=== PATIENT | female | born 1935 | race Caucasian/White ===

== ENCOUNTER 2019-03-02 18:19 | Inpatient (IN) | payer OTHER ==
[~2019-03-02] VITALS: Ht 170.2 cm; Wt 70.5 kg
[~2019-03-02 18:19] MED LIST: LANS30EC; LEVSOD25
[2019-03-02 18:48] LABS: BASOPHILS ABSOLUTE AUTO 0.07 K/mm3 (0.00-0.23); BASOPHILS PERCENT AUTO 1 % (0-2); EOSINOPHILS ABSOLUTE AUTO 0.14 K/mm3 (0.00-0.68); EOSINOPHILS PERCENT AUTO 1 % (0-6); Hematocrit 47.7 % (33.0-51.0); Hemoglobin 16.2 g/dL (11.5-16.0); IMMATURE GRAN ABSOLUTE AUTO 0.02 K/mm3 (0.00-0.10); IMMATURE GRAN PERCENT AUTO 0 % (0-1); LYMPHOCYTES ABSOLUTE AUTO 3.97 K/mm3 (0.84-5.20); LYMPHOCYTES PERCENT AUTO 38 % (21-46); MONOCYTES ABSOLUTE AUTO 0.63 K/mm3 (0.16-1.47); MONOCYTES PERCENT AUTO 6 % (4-13); Mean Corpuscular HGB 30.7 pg (26.0-34.0); Mean Corpuscular Volume 90 fL (80-100); NEUTROPHILS ABSOLUTE AUTO 5.69 K/mm3 (1.96-9.15); NEUTROPHILS PERCENT AUTO 54 % (41-73); Platelet Count 249 K/mm3 (150-400); RDW Coefficient Variation 13.9 % (11.7-14.2); RDW Standard Deviation 46.2 fL (35.1-46.3); Red Blood Cell Count 5.28 M/mm3 (3.80-5.20); White Blood Cell Count 10.52 K/mm3 (4.00-11.30)
[2019-03-02] MEDS ORDERED: OMEPRAZOLE20 MG PO (18:51)
[2019-03-02] MEDS ORDERED: FISH OIL 1,0001 EAC1 PO (18:52)
[2019-03-02] MEDS ORDERED: CHOL10002 (18:52)
[2019-03-02] MEDS ORDERED: LOSA50 PO (18:52)
[2019-03-02] MEDS ORDERED: Aspirin EC81 MG PO (18:53)
[2019-03-02] MEDS ORDERED: VIT1CAPS12 (18:53)
[2019-03-02 19:11] LABS: Alanine Aminotransfer (ALT/SGP 64 U/L (12-78); Albumin/Globulin Ratio 1.1 (0.8-1.8); Alk Phos 131 U/L (50-136); Anion Gap 9 mmol/L (6-16); Aspartate Aminotrans (AST/SGOT 52 U/L (12-37); Bilirubin, Total 0.7 mg/dL (0.1-1.0); Blood Urea Nitrogen 20 mg/dL (8-24); Bun/Creatinine Ratio 26.4 (12.0-20.0); CO2, Blood 24 mmol/L (21-32); Calcium, Blood 9.5 mg/dL (8.5-10.1); Chloride, Blood 103 mmol/L (98-108); Creatinine, Blood 0.76 mg/dL (0.40-1.00); Globulin, Blood 3.6 g/dL (2.2-4.0); Glomerular Filtration Rate >60 (60-); Glucose, Blood 125 mg/dL (70-99); Potassium, Blood 4.3 mmol/L (3.5-5.5); Sodium, Blood 136 mmol/L (136-145); Total Protein, Blood 7.6 g/dL (6.4-8.2)
[2019-03-02] MEDS ORDERED: TYLENOL PM PO (23:42)
--- NOTE | 2019-03-03 00:07 | NUR ---
DNR STATUS: DURING ADMIT ASSESSMENT, PT CLEARLY VERBALIZED THAT SHE DOES HAVE AN ADVANCE DIRECTIVE COPY AT HOME, WITH HER SON, AND HER DAUGHTER WELL. DR. CODY NOTIFIED. NEW ORDER FOR DNR STATUS.
--- NOTE | 2019-03-03 01:36 | NUR ---
PT CONTINUES TO DENY PAIN OR SOB. PT STATED TAKES TYLENOL PM AT NIGHT TO SLEEP AND IS REQUESTING SOMETHING. DR. CODY NOTIFIED. NEW ORDER FOR MELATONIN 6mg AT BEDTIME.
[2019-03-03 04:11] LABS: International Normalized Ratio 1.03; Prothrombin Time Results 10.9 Sec (9.7-11.5)
--- NOTE | 2019-03-03 09:10 | NUR ---
0830: ASSESSMENT COMPLETED, PT A&OX4. DR. GARCIA AT BEDSIDE TO DISCUSS PLAN OF CARE WITH PT AND DAUGHTER, PROCEDURE CONSENT SIGNED, HEPARIN OFF PER DR. HUTSON, PT DENIES CHEST PAIN/PRESSURE, SOB, OR NAUSEA AT THIS TIME, REPORTS RIGHT SHOULDER PAIN SECONDARY TO FALL AT HOME, KPAD APPLIED, PT REFUSES PAIN MED. 0910: ECHO COMPLETED. PT RESTING IN BED WITH NO C/O.
--- NOTE | 2019-03-03 10:47 | NUR ---
PT TO SHEET TAKER AT THIS TIME, ELODIA HUTSON CP/JASON AND SOB, SON TO ACCOMPANY PT. AM MEDS HELD UNTIL AFTER PROCEDURE, WILL ADMINISTER UPON RETURN TO UNIT.
[2019-03-03] MEDS ORDERED: Durezol5 ML RIGHTEYE (10:51)
[2019-03-03] MEDS ORDERED: TIMO.5OPSO RIGHTEYE (10:52)
--- NOTE | 2019-03-03 12:09 | NUR ---
PT RETURNED FROM [facility], DENIES CHEST PAIN/PRESSURE AT THIS TIME, VSS. PT DROWSY BUT ORIENTED X4, ROUSES EASILY TO VOICE. SON AT BEDSIDE. REPORT RECEIVED FROM [facility] STAFF, TR BAND PRESENT TO RIGHT RADIAL ARTERY ACCESS POINT, NO BLEEDING OR BRUISING NOTED, SITE WNL.
--- NOTE | 2019-03-03 13:39 | NUR ---
PHARMACY AWARE OF PTT RESULT, DOSING CLARIFIED. HEPARIN GTT RESUMED AT 12U/KG/HR PER PHARMACY ORDERS. RIGHT RADIAL ACCESS SITE WNL, NO OOZIG NOTED SINCE RETURN FROM PRACTICING MD ANESTHESIOLOGIST. 3ML AIR REMOVED FROM TR BAND AT THIS TIME. PT DENIES CP/PRESSURE OR SOB, IS RESTING WITH EYES CLOSED, DAUGHTER AT BEDSIDE. VSS.
--- NOTE | 2019-03-03 14:18 | NUR ---
1400: ROOM ASSIGNMENT RECEIVED, REPORT CALLED TO FABIANA ASTUDILLO AT [place]. 1415: REMAINING 2ML AIR REMOVED FROM TR BAND, WILL CONTINUE TO MONITOR.
--- NOTE | 2019-03-03 14:44 | NUR ---
NO CHANGES TO RADIAL SITE NOTED 30MIN AFTER COMPLETE DEFLATION, RADIAL PULSE 2+, NO OOZING OR BLEEDING NOTED FROM SITE, SITE WNL. PT DENIES CHEST PAIN/PRESSURE/SOB, VSS. [place] [facility] [place] [facility] HEPARIN CONTINUES TO INFUSE AT 12U/KG/HR, TR BAND SYRINGE SENT WITH EMS CREW. FAM[place] A[place] [facility] [place]
== END 2019-03-03 12:45 | disposition short-term general hospital (02) | DRG 282 ==
LOC: ER 18:19 → ICUE 20:30 → ERHOLD 20:30 → ICUE 22:53
PROVIDERS: Emergency Medicine; Physician Assistant; ADMIT Hospitalist
PROC: 4A023N7 Measurement of Cardiac Sampling and Pressure, Left Heart, Percutaneous Approach (ICD-10-PCS; principal; 2019-03-03)
PROC: B211YZZ Fluoroscopy of Multiple Coronary Arteries using Other Contrast (ICD-10-PCS; 2019-03-03)
DX: I21.4 Non-ST elevation (NSTEMI) myocardial infarction (principal); I10 Essential (primary) hypertension; E03.9 Hypothyroidism, unspecified; E78.5 Hyperlipidemia, unspecified; K21.9 Gastro-esophageal reflux disease without esophagitis
CPT/HCPCS: 36415; 71046; 80053; 83690; 84484; 85025; 85610; 85730; 86850; 86900; 86901; 93005; 93010; 93306; 93458; 96374; 99152; 99153; 99285-25; A9270; C1769; C1894; J1644; J2250; J3010; J7030; Q9967

== ENCOUNTER 2019-10-15 08:50 | Day surgery (SDC) | payer OTHER ==
[~2019-10-15] VITALS: Ht 170.2 cm; Wt 71.1 kg
[~2019-10-15 08:50] MED LIST changes: +Aspirin EC81 MG PO; +CHOL10002; +Durezol5 ML RIGHTEYE; +FISH OIL 1,0001 EAC1 PO; +LOSA50 PO; +OMEPRAZOLE20 MG PO; +TIMO.5OPSO RIGHTEYE; +TYLENOL PM PO; +VIT1CAPS12
--- NOTE | 2019-10-15 10:23 | NUR ---
Patient up to Ambulate independently. Gait steady. History, Chart, Medications and Allergies reviewed before start of procedure.Pre-Op teaching done. Pt verbalizes understanding.
--- NOTE | 2019-10-15 12:55 | NUR ---
PT ALERT AND ORIENTED. VSS. PT DENIES PAIN/NAUSEA. DC INSTRUCTIONS REVIEWED. PT UP AND DRESSED INDEPENDENTLY. PT ESCORTED OUT WITH STAFF VIA WC.
--- NOTE | 2019-10-15 13:18 | NUR ---
10/15/19 1317 ALEX PABON History, Chart, Medications and Allergies reviewed before start of procedure. O2 VIA N/C INTACT THROUGHOUT SEDATION/PROCEDURE. MONITOR INTACT WITH CONTINUOUS PULSE OXIMETRY AND INTERMITTENT BP.
== END 2019-10-15 12:55 | disposition home or self-care (01) ==
LOC: ORSCMMR 08:50 → ORD 10:30 → ORSCMMR 10:30
PROVIDERS: Orthopaedic Surgery
PROC: 3E0R33Z Introduction of Anti-inflammatory into Spinal Canal, Percutaneous Approach (ICD-10-PCS; principal; 2019-10-15 10:30)
DX: M54.16 Radiculopathy, lumbar region (principal); M48.061 Spinal stenosis, lumbar region without neurogenic claudication; I10 Essential (primary) hypertension; E03.9 Hypothyroidism, unspecified; R73.03 Prediabetes; K21.9 Gastro-esophageal reflux disease without esophagitis; E78.5 Hyperlipidemia, unspecified; Z79.82 Long term (current) use of aspirin; Z79.899 Other long term (current) drug therapy
CPT/HCPCS: J1040

== ENCOUNTER 2020-04-07 10:51 | Day surgery (SDC) | payer OTHER ==
[~2020-04-07] VITALS: Ht 170.2 cm; Wt 70.4 kg
[~2020-04-07 10:51] MED LIST changes: +ANASTROZOLE PO; +ARTIFICIAL TEAR15 M2; +ASPIR 8181 MG PO; +ATOR20 PO; +CLOP75 PO; +FISH OIL 1,2001 EAC1 PO; +GABA300 PO; +LEVO-T175 MCG PO; +METO25 PO; +PANT40 PO; +PREG50 PO; +Preservision A1 EACH PO; +TIMOPTIC 0.5% RIGHTEYE; +VITAMIN D325 MC3 PO
== END 2020-04-07 13:10 | disposition home or self-care (01) ==
LOC: ORSCSDS 10:51
PROVIDERS: Orthopaedic Surgery
PROC: 01N50ZZ Release Median Nerve, Open Approach (ICD-10-PCS; principal; 2020-04-07 12:15)
DX: G56.02 Carpal tunnel syndrome, left upper limb (principal); I10 Essential (primary) hypertension; I25.10 Atherosclerotic heart disease of native coronary artery without angina pectoris; E03.9 Hypothyroidism, unspecified; Z79.899 Other long term (current) drug therapy; Z79.01 Long term (current) use of anticoagulants
CPT/HCPCS: J0690; J3010; J7120

== ENCOUNTER → 2020-10-21 | Outpatient (CLI) | payer OTHER | END | disposition home or self-care (01) | LOC: LAB SHORT 11:11 → LAB 11:11 | DX: C44.311 Basal cell carcinoma of skin of nose (principal); L90.5 Scar conditions and fibrosis of skin; I88.9 Nonspecific lymphadenitis, unspecified | CPT/HCPCS: 88305 ==

== ENCOUNTER → 2021-02-26 | Outpatient (CLI) | payer OTHER ==
[2021-02-27 13:55] LABS: Stool Occult Bld Immuno 1 Negative (NEGATIVE)
== END | disposition home or self-care (01) ==
LOC: LAB SHORT 11:00
PROVIDERS: Family Medicine
DX: Z12.11 Encounter for screening for malignant neoplasm of colon (principal)
CPT/HCPCS: 82274

== ENCOUNTER 2021-08-25 11:33 | Day surgery (SDC) | payer OTHER ==
[~2021-08-25] VITALS: Ht 170.2 cm; Wt 65.6 kg
--- NOTE | 2021-08-25 13:01 | NUR ---
08/25/21 1301 Kimberly Crockett GROUNDING PAD PLACED ON LEFT CALF
--- NOTE | 2021-08-25 13:36 | NUR ---
08/25/21 1336 Kimberly Crockett HEARING AIDS BILAT IN PT. EARS AT DISCHARGE. PT. WITH GLASSES ON AT DISCHARGE.
== END 2021-08-25 13:38 | disposition home or self-care (01) ==
LOC: ORSCSDS 11:33
PROVIDERS: Student in an Organized Health Care Education/Training Program
PROC: 0DB78ZX Excision of Stomach, Pylorus, Via Natural or Artificial Opening Endoscopic, Diagnostic (ICD-10-PCS; principal; 2021-08-25 13:00)
DX: K74.60 Unspecified cirrhosis of liver (principal); I85.10 Secondary esophageal varices without bleeding; K31.7 Polyp of stomach and duodenum; Z13.810 Encounter for screening for upper gastrointestinal disorder; I10 Essential (primary) hypertension; E03.9 Hypothyroidism, unspecified; Z79.899 Other long term (current) drug therapy; Z79.82 Long term (current) use of aspirin
CPT/HCPCS: 88305; 88342; J2704; J7120

== ENCOUNTER → 2022-11-25 | Outpatient (CLI) | payer OTHER ==
[2022-11-26 08:49] LABS: Stool Occult Bld Immuno 1 Negative (NEGATIVE)
== END | disposition home or self-care (01) ==
LOC: LAB SHORT 13:45 → LAB 13:45
PROVIDERS: Family Medicine
DX: Z12.11 Encounter for screening for malignant neoplasm of colon (principal)
CPT/HCPCS: G0328

== ENCOUNTER 2023-02-03 07:41 | Day surgery (SDC) | payer OTHER ==
[~2023-02-03] VITALS: Ht 167.6 cm; Wt 66.0 kg
[2023-02-03] MEDS ORDERED: CALCIUM CITRAT250 MG (08:08)
[2023-02-03] MEDS ORDERED: GLUC500 (08:09)
[2023-02-03] MEDS ORDERED: NADO20 (08:09)
[2023-02-03] MEDS ORDERED: LEVSOD150 (08:09)
[2023-02-03] MEDS ORDERED: Crestor20 MG (08:10)
[2023-02-03 10:57] VITALS: BP 109/52
== END 2023-02-03 09:25 | disposition home or self-care (01) ==
LOC: ORSCSDS 07:41
PROVIDERS: Student in an Organized Health Care Education/Training Program
PROC: 0DB68ZX Excision of Stomach, Via Natural or Artificial Opening Endoscopic, Diagnostic (ICD-10-PCS; principal; 2023-02-03 09:00)
DX: K74.60 Unspecified cirrhosis of liver (principal); I85.10 Secondary esophageal varices without bleeding; K31.7 Polyp of stomach and duodenum; K44.9 Diaphragmatic hernia without obstruction or gangrene; I10 Essential (primary) hypertension; E03.9 Hypothyroidism, unspecified; Z79.82 Long term (current) use of aspirin; Z79.899 Other long term (current) drug therapy
CPT/HCPCS: 88305; 88341; 88342; J2704; J7120

== ENCOUNTER → 2023-07-21 | Outpatient (CLI) | payer OTHER ==
[~2023-07-21] MED LIST changes: +CALCIUM CITRAT250 MG; +Crestor20 MG; +GLUC500; +LEVSOD150; +NADO20
== END | disposition home or self-care (01) ==
LOC: LAB 07:45 → LAB SHORT 07:45
DX: L81.9 Disorder of pigmentation, unspecified (principal); L82.1 Other seborrheic keratosis
CPT/HCPCS: 88305

== ENCOUNTER → 2023-12-15 | Outpatient (CLI) | payer OTHER ==
[~2023-12-15] MED LIST changes: -ANASTROZOLE PO; +ANASTROZOLE1 M7 PO; -CALCIUM CITRAT250 MG; +CALCIUM CITRAT250 MG PO; +CARV3.125 PO; -GLUC500; +GLUC500 PO; -LEVSOD150; +LEVSOD150 PO; +LIPITOR80 MG PO; +TRAZ50 PO
== END | disposition home or self-care (01) ==
LOC: LAB 13:56 → LAB SHORT 13:56
DX: R82.998 Other abnormal findings in urine (principal)
CPT/HCPCS: 87086

== ENCOUNTER 2024-02-06 10:25 | Emergency (ER) | payer OTHER ==
[~2024-02-06] VITALS: Ht 167.6 cm; Wt 58.5 kg
[2024-02-06] MEDS ORDERED: Ondansetron HCl 2 MG / ML 2ML Vial IV ONE (10:50)
[2024-02-06] MEDS ORDERED: NS 1,000 ML IV SCH (10:50)
[2024-02-06 11:13] LABS: BASOPHILS ABSOLUTE AUTO 0.08 K/mm3 (0.00-0.23); BASOPHILS PERCENT AUTO 1 % (0-2); EOSINOPHILS ABSOLUTE AUTO 0.16 K/mm3 (0.00-0.68); EOSINOPHILS PERCENT AUTO 1 % (0-6); Hemoglobin 11.9 g/dL (11.5-16.0); IMMATURE GRAN ABSOLUTE AUTO 0.17 K/mm3 (0.00-0.10); IMMATURE GRAN PERCENT AUTO 1 % (0-1); LYMPHOCYTES PERCENT AUTO 14 % (21-46); MONOCYTES ABSOLUTE AUTO 1.04 K/mm3 (0.16-1.47); MONOCYTES PERCENT AUTO 8 % (4-13); Mean Corpuscular HGB 28.3 pg (26.0-34.0); Mean Corpuscular Volume 81 fL (80-100); Mean Platelet Volume 11.4 fL (9.1-12.4); NEUTROPHILS ABSOLUTE AUTO 9.78 K/mm3 (1.96-9.15); NEUTROPHILS PERCENT AUTO 75 % (41-73); Platelet Count 226 K/mm3 (150-400); RDW Coefficient Variation 16.9 % (11.7-14.2); RDW Standard Deviation 49.1 fL (35.1-46.3); Red Blood Cell Count 4.21 M/mm3 (3.80-5.20); White Blood Cell Count 13.03 K/mm3 (4.00-11.30)
[2024-02-06 11:33] LABS: Albumin/Globulin Ratio 0.5 (0.8-1.8); Bilirubin, Total 1.2 mg/dL (0.1-1.0); Calcium, Blood 9.3 mg/dL (8.5-10.1); Creatinine, Blood 1.29 mg/dL (0.40-1.00); Globulin, Blood 3.9 g/dL (2.2-4.0); Magnesium, Blood 2.2 mg/dL (1.6-2.4); Potassium, Blood 3.9 mmol/L (3.5-5.5); Total Protein, Blood 5.9 g/dL (6.4-8.2)
[2024-02-06 12:48] LABS: Influenza A, PCR NEGATIVE (NEGATIVE); Influenza B, PCR NEGATIVE (NEGATIVE); Resp Syncytial Virus, PCR NEGATIVE (NEGATIVE); SARS-Cov-2 (COVID-19) PCR, MMC NEGATIVE (NEGATIVE)
[2024-02-06 13:00] VITALS: BP 126/59
[2024-02-06] MEDS ORDERED: ONDA4ODT MM (13:20)
== END 2024-02-06 13:27 | disposition home or self-care (01) ==
LOC: ER 10:25
PROVIDERS: Physician Assistant; Student in an Organized Health Care Education/Training Program
DX: R53.1 Weakness (principal); R11.0 Nausea; I10 Essential (primary) hypertension; E03.9 Hypothyroidism, unspecified; Z79.899 Other long term (current) drug therapy; Z88.5 Allergy status to narcotic agent
CPT/HCPCS: 0241U; 71046; 80053; 83735; 85025; 93005; 93010; 96361; 96374; 99284-25; J2405; J7030

== ENCOUNTER 2024-03-04 19:22 | Emergency (ER) | payer OTHER ==
[~2024-03-04] VITALS: Ht 167.6 cm; Wt 68.0 kg
[~2024-03-04 19:22] MED LIST changes: +ONDA4ODT MM
[2024-03-04] MEDS ORDERED: ENULOSE10 GM/156 PO (19:48)
[2024-03-04] MEDS ORDERED: CARVEDILOL3.125 MG PO (19:48)
[2024-03-04] MEDS ORDERED: FUROSEMIDE20 MG PO (19:49)
[2024-03-04] MEDS ORDERED: SPIRONOLACTONE25 MG PO (19:50)
[2024-03-05] MEDS ORDERED: Acetaminophen 325 MG TABLET PO ONE (16:55)
[2024-03-05 19:19] VITALS: BP 109/72
[2024-03-06] MEDS ORDERED: Acetaminophen 325 MG TABLET PO ONE (04:10)
== END 2024-03-06 09:25 ==
LOC: ER 19:22
DX: S42.202A Unspecified fracture of upper end of left humerus, initial encounter for closed fracture (principal); I10 Essential (primary) hypertension; E03.9 Hypothyroidism, unspecified; W01.0XXA Fall on same level from slipping, tripping and stumbling without subsequent striking against object, initial encounter; Z79.899 Other long term (current) drug therapy; Z88.5 Allergy status to narcotic agent
CPT/HCPCS: 73030; 73060; 93005; 93010; 97162; 97530; 99285-25; A9270

== ENCOUNTER → 2024-09-04 | Outpatient (CLI) | payer OTHER ==
[~2024-09-04] MED LIST changes: +CARVEDILOL3.125 MG PO; +ENULOSE10 GM/156 PO; +FUROSEMIDE20 MG PO; +SPIRONOLACTONE25 MG PO
== END | disposition home or self-care (01) ==
LOC: LAB 14:51 → LAB SHORT 14:51
DX: R39.15 Urgency of urination (principal)
CPT/HCPCS: 87077; 87086; 87186